=== PATIENT | male | born 1975 | race Caucasian/White ===

== ENCOUNTER 2020-02-19 12:51 | Emergency (ER) | payer MEDICAID ==
[~2020-02-19] VITALS: Ht 175.3 cm; Wt 117.9 kg
[2020-02-19 13:11] VITALS: Ht 175.3 cm; Wt 117.9 kg
[2020-02-19 13:35] VITALS: BP 95/35
[2020-02-19 14:34] LABS: PLATELET COUNT 98 x10^3mcL (152-348); RED CELL DISTRIBUTION WIDTH 19.6 % (12.1-16.2)
[2020-02-19 14:40] LABS: ALKALINE PHOSPHATASE 161 U/L (46-116); ALT/SGPT 75 U/L (16-63); AST/SGOT 103 U/L (15-37); BILIRUBIN TOTAL 9.3 mg/dL (0.20-1.00); C REACTIVE PROTEIN 2.4 mg/dL (<=0.9); CALCIUM 7.9 mg/dL (8.5-10.1); CARBON DIOXIDE 14.6 mmol/L (21-32); CHLORIDE SERUM 100 mmol/L (98-107); CREATININE SERUM 3.4 mg/dL (0.7-1.3); GFR1 21 mL/min; GLUCOSE SERUM 69 mg/dL (74-106); LACTIC DEHYDROGENASE (LDH) 296 U/L (100-190); SODIUM SERUM 130 mmol/L (136-145); TOTAL PROTEIN, SERUM 7.2 g/dL (6.4-8.2)
[2020-02-19 15:00] LABS: ALBUMIN 1.5 g/dL (3.4-5.0)
[2020-02-19 15:05] LABS: POTASSIUM SERUM 6.8 mmol/L (3.5-5.1)
[2020-02-19 16:08] LABS: BAND NEUTROPHIL 2 % (0-10); BASOPHIL 0 % (0-2); MONOCYTE 1 % (0-7); SEGMENTED NEUTROPHILS 93 % (37-75)
[2020-02-19 16:10] LABS: rbc morphology (normal/abnorm) ABNORMAL (NORMAL)
[2020-02-19 19:09] VITALS: BP 64/29
== END 2020-02-20 04:00 | disposition home or self-care (01) ==
LOC: EDBD 12:51 → ED 12:51
PROVIDERS: Emergency Medicine
DX: I46.9 Cardiac arrest, cause unspecified (principal); K72.90 Hepatic failure, unspecified without coma; J18.9 Pneumonia, unspecified organism; D64.9 Anemia, unspecified; Z20.828 Contact with and (suspected) exposure to other viral communicable diseases
CPT/HCPCS: 31500; 36600; 83880; 85378; 87804; 90714; C9113; J0456; J0696; J3490; J7040; J7050; J7060; P9016; U0003